=== PATIENT | female | born 1990 | race Caucasian/White ===

== ENCOUNTER 2018-12-24 19:29 | Emergency (ER) | payer SELFPAY ==
[2018-12-24] MEDS ORDERED: Lidocaine 1% (PF) 30 ML VIAL ONE (19:41)
[2018-12-24] MEDS ORDERED: Bacitracin 1 PK ONE ×2 (20:23→20:25)
[2018-12-24] MEDS ORDERED: Adacel (T-DAP) 0.5 ML SYRINGE ONE (20:25)
== END 2018-12-24 20:37 | disposition home or self-care (01) ==
LOC: ERS 19:29
DX: S61.213A Laceration without foreign body of left middle finger without damage to nail, initial encounter (principal); W26.0XXA Contact with knife, initial encounter
CPT/HCPCS: 12001; 90715; J2001

== ENCOUNTER 2019-09-16 21:58 | Day surgery (SDC) | payer SELFPAY ==
[2019-09-16 22:14] VITALS: BMI 30.2
[2019-09-16] MEDS ORDERED: hydrALAZINE 20 MG/ML VIAL SLOW IVP PRN (22:24)
--- NOTE | 2019-09-16 23:52 | PRG ---
DATE OF SERVICE: 09/16/2019 TIME OF SERVICE: 2320. PRESENTING COMPLAINT: Fast heart beat at 36 weeks gestation. HISTORY OF PRESENT ILLNESS: Ms. Fitch is a 29-year-old 5, para 2, living 3 . She reports several days to week of increased heart rate. She has a history of LGA deliveries. She reports perception of intermittent fast heart rate over the past week. No syncope. Active fetus. 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 Blood type A negative. Has received RhoGAM. PAST MEDICAL HISTORY: Anemia. PAST SURGICAL HISTORY: None. ALLERGIES: NONE. MEDICATIONS: vitamins and iron. SOCIAL HISTORY: Denies tobacco, alcohol, or IV drug use. FAMILY HISTORY: Noncontributory. REVIEW OF SYSTEMS: Noncontributory. PHYSICAL EXAMINATION: GENERAL: White female in no acute distress. VITAL SIGNS: Blood pressure 118/72, pulse 93 to 105 on intermittent checks, respirations 18. HEENT: Within normal limits. LUNGS: Clear to auscultation bilaterally. ABDOMEN: Soft, nontender. FHTs 140s. PELVIC: Deferred. EXTREMITIES: No clubbing, cyanosis, or edema. LABORATORY DATA: monitoring is carried out with a category 1 heart rate tracing. EKG was performed, which was normal sinus rhythm. Normal QT intervals. No EKG abnormalities noted with a pulse in the mid 90s. IMPRESSION: Physiologic mild tachycardia of , intermittent in 3rd trimester. PLAN: Reassurance. Discharge home. ER precautions for syncopal events. Job ID: [id number]
--- NOTE | 2019-09-18 09:47 | EKG ---
Test Reason : STAT Blood Pressure : / mmHG Vent. Rate : 092 BPM Atrial Rate : 092 BPM P-R Int : 166 ms QRS Dur : 086 ms QT Int : 346 ms P-R-T Axes : 038 064 046 degrees QTc Int : 427 ms Normal sinus rhythm Normal ECG No previous ECGs available Confirmed by DR. Niecy ALLEN ([id number]) on 09/18/2019 9:46:58 AM Referred By: JAYESH SOTO Confirmed By:DR. Niecy ALLEN
== END 2019-09-16 23:30 | disposition home or self-care (01) ==
LOC: L&D/OP 21:58
PROVIDERS: ATTEND Student in an Organized Health Care Education/Training Program
DX: O99.89 Other specified diseases and conditions complicating pregnancy, childbirth and the puerperium (principal); R00.0 Tachycardia, unspecified; O99.013 Anemia complicating pregnancy, third trimester; D64.9 Anemia, unspecified; Z3A.36 36 weeks gestation of pregnancy; Z79.899 Other long term (current) drug therapy; Z91.011 Allergy to milk products
CPT/HCPCS: 93005; 93010